=== PATIENT | female | born 1960 | race Caucasian/White ===

== ENCOUNTER 2023-12-05 09:45 | Outpatient (RCR) | payer OTHER, SELFPAY | END 2024-04-03 23:59 | disposition home or self-care (01) | PROVIDERS: PCP Student in an Organized Health Care Education/Training Program; Visit Provider Student in an Organized Health Care Education/Training Program | DX: M50.90 Cervical disc disorder, unspecified, unspecified cervical region (principal); G44.229 Chronic tension-type headache, not intractable; S46.812S Strain of other muscles, fascia and tendons at shoulder and upper arm level, left arm, sequela; Z51.89 Encounter for other specified aftercare | CPT/HCPCS: 97012; 97110; 97140; 97162 ==

== ENCOUNTER 2024-04-19 12:59 | Emergency (ER) | payer OTHER, SELFPAY ==
[2024-04-19 13:06] VITALS: BP 113/78; PULSE 86; RESP 16; TEMP 37.1; O2SAT 97; BMI 36.5
--- NOTE | 2024-04-19 13:57 | CRLHL7_ITS ---
For Patients: As a result of the Century Cures Act, medical imaging exams and procedure reports are released immediately into your electronic medical record. You may view this report before your referring provider. If you have questions, please contact your health care provider. INDICATION: Right lower quadrant tenderness. TECHNIQUE: CT abdomen and pelvis acquired with 101 mL Isovue 370 contrast. COMPARISON: None. FINDINGS: Lower chest: No focal consolidation. Partially visualized 0.3 cm subpleural pulmonary nodule in the right middle lobe. Liver: No suspicious focal hepatic lesion. Gallbladder and bile ducts: Unremarkable. Pancreas: Unremarkable. Spleen: Unremarkable. Adrenal glands: Unremarkable. Kidneys: Kidneys enhance symmetrically, without hydronephrosis. Retroperitoneum: No lymphadenopathy. Bowel and mesentery: Bowel is not obstructed. No significant ascites, no pneumoperitoneum. Normal appendix. Bladder: Unremarkable for degree of distention. Reproductive organs: Post hysterectomy. Pelvic lymph nodes: No lymphadenopathy. Vessels: Unremarkable. Abdominal wall: No acute abdominal wall abnormality. Bones: Multilevel degenerative changes of the spine. No suspicious/aggressive focal osseous lesion. IMPRESSION: 1. Normal appendix. No acute intra-abdominal abnormality identified. 2. Partially visualized 0.3 cm pulmonary nodule in the right middle lobe. Consider optional follow up CT chest in 12 months, per Fleischner guidelines. Please note that all CT scans at this facility use dose modulation, iterative reconstruction, and/or weight-based dosing when appropriate to reduce radiation dose to as low as reasonably achievable. Dictated by Ghislaine Mcadams MD @ 04/19/2024 4:49:40 PM (Electronically Signed)
--- NOTE | 2024-04-19 14:00 | ED.ABDPAIN ---
HPI - Abdominal Pain General Date Seen: 04/19/24 Chief Complaint: Abdominal Pain Stated Complaint: Low RT sided abdominal pain Time Seen by Provider: 04/19/24 13:00 Source: patient Mode of arrival: ambulatory Limitations: no limitations History of Present Illness HPI narrative: Patient is a 63-year-old female presenting for lower quadrant abdominal pain. She states the pain has been gone for past 4 days. Started more in her right the upper abdominal region has gradually moved down to the right lower quadrant. States the pain was initially intermittent and miles but has been gradually getting worse and more consistent. States pain has been very consistent today and was so better woke her up from her sleep. Pain was not going away should she came to the emergency department for evaluation. Denies fevers, chills, chest pain, shortness of breath, headache, lightheadedness, dizziness, weakness, numbness. States she was having constipation for week up until yesterday when she began to have a large amount diarrhea. Has not had any bowel movements today. Has been having nausea and for the past 6 days. Is not aware of any sick contacts. Previous abdominal surgeries include hysterectomy and section. Has been told she has some gallbladder issues in the past but states testing based showed she did not need it removed. She denies dysuria, hematuria, vaginal discharge or bleeding. Has been wegovy for the past 4 months. Related Data Home Medications ?Medication ?Instructions ?Recorded ?Confirmed alprazolam 0.5 mg tablet 0.5 mg PO QDAY 01/02/24 01/02/24 aspirin 81 mg tablet,delayed 81 mg PO QDAY 01/02/24 01/02/24 release bupropion HCl 150 mg 24 hr tablet, 150 mg PO QAM 01/02/24 01/02/24 extended release epinephrine 0.3 mg/0.3 mL 0.3 mg IM ONCE 01/02/24 01/02/24 injection, auto-injector ibuprofen 800 mg tablet (IBU) 800 mg PO TID 01/02/24 01/02/24 levothyroxine 50 mcg tablet 50 mcg PO QDAY 01/02/24 01/02/24 (Levo-T) meclizine 25 mg tablet 25 mg PO QDAY PRN 01/02/24 01/02/24 pantoprazole 40 mg tablet,delayed 40 mg PO QDAY 01/02/24 01/02/24 release rizatriptan 5 mg tablet See Rx Instructions PO .COMPLEX 01/02/24 01/02/24 rosuvastatin 10 mg tablet 10 mg PO QDAY 01/02/24 01/02/24 trazodone 50 mg tablet 50 mg PO QHS PRN 01/02/24 01/02/24 Previous Rx's ?Medication ?Instructions ?Recorded benzonatate 200 mg capsule 200 mg PO TID PRN cough #14 caps 01/02/24 ondansetron 4 mg disintegrating 4 mg PO Q6H #20 tabs 04/19/24 tablet Allergies Allergy/AdvReac Type Severity Reaction Status Date / Time latex Allergy Severe Swelling Verified 04/19/24 13:05 of Lip/Tongue/Throat Penicillins Allergy Intermediate Verified 04/19/24 13:05 Iodinated Contrast Media Allergy Unknown Verified 04/19/24 14:39 Review of Systems Status of ROS Reports: 10 or more systems reviewed and unremarkable except as noted in History and below Exam Narrative: Exam Narrative: Const: Well-nourished, Well-developed, in mild distress Eyes: PERRL, no conjunctival injection, and symmetrical lids HENT: Atraumatic external nose and ears. Moist mucous membranes. Neck: Symmetric, trachea midline, No thyromegaly. CVS: RRR, No murmurs or gallops. Peripheral pulses 2+ and equal in all extremities RESP: Unlabored respiratory effort. Clear to auscultation bilaterally. GI: Right lower quadrant tenderness, Nondistended, No rebound or guarding. MSK:Extremities w/o deformity, Normal Active ROM Skin: Warm, Dry. No rashes or lesions. Neuro: Normal Muscle tone, No focal neurological deficits. Psych: Awake, Alert, & Oriented x3. Appropriate mood and affect. Const: Vital Signs, click to edit/add: Vital Signs - 24 hr 04/19/24 13:06 04/19/24 18:01 Temperature 98.7 F 98.6 F Pulse Rate [Pulse Oximeter] 86 73 Respiratory Rate 16 19 Blood Pressure [Ri ght Upper Arm] 113/78 107/63 Pulse Oximetry 97 97 Oxygen Delivery Me thod Room Air Room Air Course Vital Signs Vital signs: Initial Vital Signs Temperature 98.7 F 04/19/24 13:06 Temperature Source Temporal Artery Scan 04/19/24 13:06 Pulse Rate 86 0905/24 13:06 Respiratory Rate 16 04/19/24 13:06 Blood Pressure 113/78 04/19/24 13:06 Blood Pressure Mean 89 04/19/24 13:06 Blood Pressure Position Sitting 04/19/24 13:06 Pulse Oximetry 97 04/19/24 13:06 Oxygen Delivery Method Room Air 04/19/24 13:06 Vital Signs Temperature 98.7 F 04/19/24 13:06 Pulse Rate 86 04/19/24 13:06 Respiratory Rate 16 04/19/24 13:06 Blood Pressure 113/78 04/19/24 13:06 Pulse Oximetry 97 04/19/24 13:06 Oxygen Delivery Method Room Air 04/19/24 13:06 Temperature 98.6 F 04/19/24 18:01 Pulse Rate 73 04/19/24 18:01 Respiratory Rate 19 04/19/24 18:01 Blood Pressure 107/63 04/19/24 18:01 Pulse Oximetry 97 04/19/24 18:01 Oxygen Delivery Method Room Air 04/19/24 18:01 Medications Administered Medications: Discontinued Medications Generic Name Dose Route Start Last Admin Trade Name Freq PRN Reason Stop Dose Admin Diphenhydramine HCl 50 mg 04/19/24 14:40 04/19/24 14:59 Diphenhydramine 50 Mg/Ml Inj IVP 04/19/24 14:41 50 mg ONCE ONE Administration Hydrocortisone Sodium Succinate 200 mg 04/19/24 14:40 04/19/24 15:00 Hydrocortisone Sod Succinate 50 Mg/Ml Inj IVP 04/19/24 14:41 200 mg ONCE ONE Administration Ondansetron HCl 4 mg 04/19/24 15:24 04/19/24 15:31 Ondansetron 2 Mg/Ml Inj IVP 04/19/24 15:25 4 mg ONCE ONE Administration MDM - Abdominal Pain MDM Narrative Medical decision making narrative: Patient is a 63 year female presenting to emergency department for abdominal pain. The differential this time includes appendicitis, colitis, gastroenteritis. Has had previous bowel surgery showed SBO is on the differential. Less likely to be pancreatitis, diverticulitis, gallbladder disease. Will do CT scan for better evaluation. She is not wanting him for pain or nausea at this time. Has been eating and drinking well and is not showing signs of patient dehydration. Will do a COVID/flu, CBC, CMP, urinalysis. Considering the pain is all the way down in the lower right quadrant and pelvis this seems unlikely to be ACS related. Lab work returned showing no concerning abnormalities. CT scan reviewed by myself and the radiologist shows no acute abnormalities. I was considering this could be related to an ovarian torsion. Was seems unlikely she does states she previously had pain on the left side which she was told was from an ovarian cyst. I spoke to her and we will do an ultrasound of the pelvis at this time. It was done and there is lot of bowel gas in hard to see the ovaries. Considering the that ovaries were unable to be seen seems unlikely there is a large cyst there causing an intermittent torsion. I am not sure was causing her pain at this time but it does not appear to be any emergent conditions. She does have some constipation. Her pain is tolerable at this time and she is agreeable to discharge. She will be prescribed Zofran for nausea. She is agreeable to this plan. Lab Data Labs: Lab Results 04/19/24 04/19/24 04/19/24 Range/Units 14:10 14:12 14:16 WBC 6.43 (4.50-11.00) K/uL RBC 4.40 (4.00-5.20) m/uL Hgb 12.2 (12.0-16.0) gm/dL Hct 38.5 (33.0-51.0) % MCV 88 (80-100) fL MCH 28 (26-34) pg MCHC 32 (32-36) gm/dL RDW Coeff of Stacie 13.1 (11.5-15.5) % Plt Count 256 (140-440) K/uL Neut % (Auto) 50.9 (42.0-72.0) % Lymph % (Auto) 37.6 (20-44) % [place] % (Auto) 8.1 (0.0-11.0) % Eos % (Auto) 3.1 (0.0-7.0) % Baso % (Auto) 0.3 (0.0-3.0) % Neut # (Auto) 3.27 (1.7-7.0) K/uL Lymph # (Auto) 2.42 (0.90-2.90) K/uL [place] # (Auto) 0.50 (0.00-0.90) K/UL Eos # (Auto) 0.20 (0.00-0.50) K/uL Baso # (Auto) 0.02 (0.00-0.30) K/uL Abs Immat Gran (auto) 0.00 (0.00-0.30) K/uL Imm/Tot Granulo (auto) 0.0 % Sodium 140 (135-149) mmol/L Potassium 4.0 (3.6-5.1) mmol/L Chloride 104 (96-114) mmol/L Carbon Dioxide 27 (20-32) mmol/L Anion Gap 9 (7-15) mEq/L BUN 12 (7-30) mg/dL Creatinine 0.8 (0.5-1.5) mg/dL Estimated Creat Clear 48.25 Estimated GFR 83 ml/min Glucose 95 (60-115) mg/dL Calcium 9.2 (8.4-10.6) mg/dL Total Bilirubin 1.3 (0.1-1.5) mg/dL AST 26 (12-35) U/L ALT 14 (4-35) U/L Alkaline Phosphatase 88 (40-150) U/L Total Protein 7.7 (6.0-8.3) g/dL Albumin 4.8 (3.3-5.0) g/dL Urine Color (Yellow) Urine Appearance (Clear) Urine pH (5.0-8.5) Ur Specific [place] (1.000-1.030) Urine Protein (Negative) Urine Glucose (UA) (Negative) Urine Ketones (Negative) Urine Blood (Negative) Urine Nitrite (Negative) Urine Bilirubin (Negative) Urine Urobilinogen (0.2-1.0) Ur Leukocyte Esterase (Negative) Urine RBC (0-2) Urine WBC (0-5) Ur Squamous Epith Cells (None-Few) Urine Bacteria (None) SARS-CoV-2 (PCR) Negative SARS-CoV-2 (Negative) Influenza Type A (PCR) Negative PCR FLU A (Negative) Influenza Type B (PCR) Negative PCR FLU B (Negative) POC Creatinine 0.9 (0.6-1.3) mg/dl 04/19/24 Range/Units 15:03 WBC (4.50-11.00) K/uL RBC (4.00-5.20) m/uL Hgb (12.0-16.0) gm/dL Hct (33.0-51.0) % MCV (80-100) fL MCH (26-34) pg MCHC (32-36) gm/dL RDW Coeff of Stacie (11.5-15.5) % Plt Count (140-440) K/uL Neut % (Auto) (42.0-72.0) % Lymph % (Auto) (20-44) % [place] % (Auto) (0.0-11.0) % Eos % (Auto) (0.0-7.0) % Baso % (Auto) (0.0-3.0) % Neut # (Auto) (1.7-7.0) K/uL Lymph # (Auto) (0.90-2.90) K/uL [place] # (Auto) (0.00-0.90) K/UL Eos # (Auto) (0.00-0.50) K/uL Baso # (Auto) (0.00-0.30) K/uL Abs Immat Gran (auto) (0.00-0.30) K/uL Imm/Tot Granulo (auto) % Sodium (135-149) mmol/L Potassium (3.6-5.1) mmol/L Chloride (96-114) mmol/L Carbon Dioxide (20-32) mmol/L Anion Gap (7-15) mEq/L BUN (7-30) mg/dL Creatinine (0.5-1.5) mg/dL Estimated Creat Clear Estimated GFR ml/min Glucose (60-115) mg/dL Calcium (8.4-10.6) mg/dL Total Bilirubin (0.1-1.5) mg/dL AST (12-35) U/L ALT (4-35) U/L Alkaline Phosphatase (40-150) U/L Total Protein (6.0-8.3) g/dL Albumin (3.3-5.0) g/dL Urine Color Yellow (Yellow) Urine Appearance Clear (Clear) Urine pH 6.0 (5.0-8.5) Ur Specific [place] 1.020 (1.000-1.030) Urine Protein Negative (Negative) Urine Glucose (UA) Negative (Negative) Urine Ketones Negative (Negative) Urine Blood Negative (Negative) Urine Nitrite Negative (Negative) Urine Bilirubin Negative (Negative) Urine Urobilinogen 0.2 (0.2-1.0) Ur Leukocyte Esterase Trace A (Negative) Urine RBC 0-2 (0-2) Urine WBC 2-5 (0-5) Ur Squamous Epith Cells Few (None-Few) Urine Bacteria Few A (None) SARS-CoV-2 (PCR) (Negative) Influenza Type A (PCR) (Negative) Influenza Type B (PCR) (Negative) POC Creatinine (0.6-1.3) mg/dl Imaging Data CT scan abdomen and pelvis: Attestation: I have reviewed the pertinent imaging results. Radiologist's impression: 1. Normal appendix. No acute intra-abdominal abnormality identified. 2. Partially visualized 0.3 cm pulmonary nodule in the right middle lobe. Consider optional follow up CT chest in 12 months, per Fleischner guidelines. Please note that all CT scans at this facility use dose modulation, iterative reconstruction, and/or weight-based dosing when appropriate to reduce radiation dose to as low as reasonably achievable. Dictated by Ghislaine Mcadams MD @ 04/19/2024 4:49:40 PM Pelvic ultrasound: Attestation: I have reviewed the pertinent imaging results. Radiologist's impression: 1. Suboptimal examination secondary to overlying bowel gas. 2. Status post hysterectomy. 3. Bilateral ovaries are not visualized. Dictated by Howard Moralez MD @ 04/19/2024 6:00:20 PM Discharge Plan Discharge Clinical Impression: Abdominal pain Qualifiers: Abdominal location: right lower quadrant Qualified Code(s): R10.31 - Right lower quadrant pain Patient Disposition: Home, Self-Care Condition: Stable Instructions: Abdominal Pain (ED) Additional Instructions: Return to emergency department for new worsening symptoms. Take Tylenol and ibuprofen for pain. Use the Zofran as needed for nausea. Prescriptions: New ondansetron 4 mg tablet,disintegrating 4 mg PO Q6H Qty: 20 0RF No Action meclizine 25 mg tablet 25 mg PO QDAY PRN aspirin 81 mg tablet,delayed release (DR/EC) 81 mg PO QDAY rosuvastatin 10 mg tablet 10 mg PO QDAY ibuprofen [IBU] 800 mg tablet 800 mg PO TID levothyroxine [Levo-T] 50 mcg tablet 50 mcg PO QDAY pantoprazole 40 mg tablet,delayed release (DR/EC) 40 mg PO QDAY bupropion HCl 150 mg tablet extended release 24 hr 150 mg PO QAM trazodone 50 mg tablet 50 mg PO QHS PRN epinephrine 0.3 mg/0.3 mL auto-injector 0.3 mg IM ONCE Rx Instructions: as a single dose; may repeat once alprazolam 0.5 mg tablet 0.5 mg PO QDAY rizatriptan 5 mg tablet See Rx Instructions PO .COMPLEX Rx Instructions: take 1 tablet at onset of headache; if no relief, may repeat 1 tablet after at least 2 hrs PO benzonatate 200 mg capsule 200 mg PO TID PRN (Reason: cough) Qty: 14 0RF Follow Up/Referrals: NATALIE SMITH DO [Primary Care Provider] - Stand Alone Forms: [employer] Info Instructions
[2024-04-19 14:20] LABS: Basophils Absolute Auto 0.02 K/uL (0.00-0.30); Basophils Percent Auto 0.3 % (0.0-3.0); Eosinophils Percent Auto 3.1 % (0.0-7.0); Hematocrit 38.5 % (33.0-51.0); Hemoglobin* 12.2 gm/dL (12.0-16.0); Lymphocytes Absolute Auto 2.42 K/uL (0.90-2.90); Lymphocytes Percent Auto 37.6 % (20-44); Mean Corpuscular HGB Conc 32 gm/dL (32-36); Mean Corpuscular Hemoglobin 28 pg (26-34); Mean Corpuscular Volume 88 fL (80-100); Monocytes Percent Auto 8.1 % (0.0-11.0); Neutrophils Absolute Auto 3.27 K/uL (1.7-7.0); Neutrophils Percent Auto 50.9 % (42.0-72.0); Platelet Count* 256 K/uL (140-440); RDW Coefficient of Variation % 13.1 % (11.5-15.5); White Blood Count* 6.43 K/uL (4.50-11.00)
[2024-04-19 14:22] LABS: Slide Review Reflex No
[2024-04-19 14:23] LABS: Creatinine, Point-of-Care* 0.9 mg/dl (0.6-1.3)
[2024-04-19 14:34] LABS: Albumin* 4.8 g/dL (3.3-5.0); Chloride* 104 mmol/L (96-114); Sodium* 140 mmol/L (135-149)
[2024-04-19 14:36] LABS: Creatinine* 0.8 mg/dL (0.5-1.5); Est. Creatinine Clearance* 48.25; Estimated Glomerular Filt Rate 83 ml/min
[2024-04-19 14:37] LABS: Alanine Aminotransferase* 14 U/L (4-35); Alkaline Phosphatase* 88 U/L (40-150); Anion Gap 9 mEq/L (7-15); Aspartate Amino Transferase* 26 U/L (12-35); Bilirubin Total* 1.3 mg/dL (0.1-1.5); Blood Urea Nitrogen* 12 mg/dL (7-30); Calcium* 9.2 mg/dL (8.4-10.6); Carbon Dioxide* 27 mmol/L (20-32); Glucose* 95 mg/dL (60-115); Total Protein* 7.7 g/dL (6.0-8.3)
[2024-04-19 14:55] LABS: PCR FLU A Negative PCR FLU A (Negative); PCR FLU B Negative PCR FLU B (Negative); SARS PCR* Negative SARS-CoV-2 (Negative)
[2024-04-19] MEDS: diphenhydrAMINE 50 MG/ML inj IVP (14:59)
[2024-04-19] MEDS: HYDROCORTISONE SOD SUCCINATE 50 MG/ML inj 200 MG IVP (15:00)
[2024-04-19 15:18] LABS: Appearance Urine Clear (Clear); Bilirubin Urine Negative (Negative); Blood Urine Negative (Negative); Color Urine Yellow (Yellow); Glucose Urine Negative (Negative); Ketones Urine Negative (Negative); Leukocyte Esterase Urine Trace (Negative); Nitrite Urine Negative (Negative); Protein Urine Negative (Negative); Urobilinogen Urine 0.2 (0.2-1.0)
[2024-04-19] MEDS: ONDANSETRON 2 MG/ML inj 4 MG IVP (15:31)
[2024-04-19 16:17] LABS: Bacteria Urine Few; RBC Urine 0-2 (0-2); Squamous Epithelial Cell Urine Few (None-Few)
--- NOTE | 2024-04-19 17:09 | CRLHL7_ITS ---
For Patients: As a result of the Cures Act, medical imaging exams and procedure reports are released immediately into your electronic medical record. You may view this report before your referring provider. If you have questions, please contact your health care provider. Indication: pelvic pain, hysterectomy Technique: Real-time sonographic images of the pelvis were obtained transabdominally and transvaginally utilizing grayscale, color, and Doppler imaging. Comparison: None. Findings: Suboptimal examination secondary to overlying bowel gas. Uterus: Status post hysterectomy. Right ovary: Not visualized. Left ovary: Not visualized. Free fluid: None. Impression: 1. Suboptimal examination secondary to overlying bowel gas. 2. Status post hysterectomy. 3. Bilateral ovaries are not visualized. Dictated by Howard Moralez MD @ 04/19/2024 6:00:20 PM (Electronically Signed)
[2024-04-19 18:01] VITALS: BP 107/63; PULSE 73; RESP 19; TEMP 37; O2SAT 97
== END 2024-04-19 18:41 | disposition home or self-care (01) ==
PROVIDERS: Emergency Provider Student in an Organized Health Care Education/Training Program; PCP Student in an Organized Health Care Education/Training Program
DX: R10.31 Right lower quadrant pain (principal)
CPT/HCPCS: 36415; 74177; 76830; 76856; 80053; 81001; 82565; 85025; 87086; 87631; 96374; 96375; 99283; 99284; J1200; J1720; J2405; Q9967